=== PATIENT | female | born 1940 | race Caucasian/White ===

== ENCOUNTER 2020-07-19 15:19 | Emergency (ER) | payer MEDICARE, SELFPAY ==
--- NOTE | ~2020-07-19 | XR_ITS ---
XR elbow LT min 3V DATE: 07/19/2020 15:54 INDICATION: Fell backwards and landed on elbow TECHNIQUE: 4 views COMPARISON: None FINDINGS: No fracture or dislocation or joint effusion. No periosteal reaction or bone destruction. IMPRESSION: Negative Reviewed, dictated and finalized at location A. ROOM INTERN IMPRESSION: Negative
[2020-07-19 15:40] VITALS: BP 155/64; PULSE 97; RESP 18; TEMP 36.2; O2SAT 96
--- NOTE | 2020-07-19 15:41 | ED.UPPEXIN ---
HPI - Extremity Injury (Upper) General Chief Complaint: Extremity Injury, Upper Stated Complaint: Left elbow injury Source: patient Mode of arrival: ambulatory Limitations: no limitations History of Present Illness HPI narrative: Matilde Shah is a 80 yo female with a PMH of here for evaluation of left elbow. She was backing of the door with her wet dog and tripped and fell and hit her left elbow there is abrasion and started to bleed and patient drove herself to express care. She came in by wheelchair from car because is recovering from foot fracture. There appears to be no pain in the arm and she is able to have full range of motion both of lower extremity and shoulder Related Data Home Medications Medication Instructions Recorded Confirmed allopurinol 07/19/20 atenolol 07/19/20 atorvastatin 07/19/20 ferrous sulfate mg 07/19/20 furosemide 07/19/20 gabapentin 07/19/20 insulin glargine [Lantus Solostar SUBCUT 07/19/20 U-100 Insulin] nabumetone mg 07/19/20 omeprazole 07/19/20 oxybutynin chloride 07/19/20 sertraline mg 07/19/20 spironolactone 07/19/20 torsemide mg 07/19/20 tramadol mg 07/19/20 Allergies Allergy/AdvReac Type Severity Reaction Status Date / Time Sulfa (Sulfonamide Allergy Rash Verified 07/19/20 16:08 Antibiotics) Review of Systems Review of Systems: Narrative: CONSTITUTIONAL: Denies fever, chills, sweats. EYES: Denies visual changes, redness, discharge. ENT: Denies rhinorrhea, congestion, sore throat, otalgia. CARDIOVASCULAR: Denies chest pain, palpitations, edema. RESPIRATORY: Denies dyspnea, wheezing, cough GASTROINTESTINAL: Denies abdominal pain, nausea, vomiting, diarrhea. GENITOURINARY: Denies dysuria, hematuria, abnormal discharge SKIN: abrasion and small laceration to L elbow- 20 hrs old NEUROLOGIC: Denies numbness, or focal weakness. PSYCHIATRIC: Denies anxiety or depression. Left elbow pain PMFSH Past Medical History Medical History Appendix carcinoma Colon adenoma High cholesterol HTN (hypertension) Family History Family History Other Hypertension Social History Social History (Updated 07/19/20 @ 16:37 by Ariane Chapin CNP) Smoking status: Never smoker Alcohol intake: current Comments At time of signature, I agree with nursing past medical, surgical, social and family history. There is no relevant family history pertinent to the presenting complaint. Exam Narrative: Exam Narrative: GENERAL: This is a well-nourished, well-developed patient, in mild distress. HEAD: normocephalic, atraumatic. EYES: Sclera clear/white. Vision is grossly intact. EARS: External ears normal, auditory canals clear and without drainage, TMs normal without perforation. Hearing grossly intact. NOSE: External nose normal without nasal discharge, nares without redness, no rhinorrhea. THROAT: Mucous membranes moist, NECK: Neck supple, r CARDIOVASCULAR: Regular rate and rhythm without murmurs, gallops, or rubs. RESPIRATORY: Clear to auscultation. Breath sounds equal bilaterally. No wheezes, rales, or rhonchi. GASTROINTESTINAL: Abdomen soft, SKIN: warm, intact - L elbow abrasion, small 2cm laceration NEURO: awake, alert, and oriented to person, place and time. There were no obvious focal neurologic abnormalities. Steady gait EXTREMITIES: Normal range of motion. BACK: Nontender without deformity Course Course Emergency Course: Patient fell while backing in the door with wet dog and hit left elbow X-ray done of left elbow-results:neg for fracture Vital Signs Vital signs: Vital Signs Temperature 97.2 F L 07/19/20 15:40 Pulse Rate 97 07/19/20 15:40 Respiratory Rate 18 07/19/20 15:40 Blood Pressure 155/64 H 07/19/20 15:40 Pulse Oximetry 96 07/19/20 15:40 Temperature 97.2 F L 07/19/20 15:40 Pulse Rate 97 07/19/20 15
== END 2020-07-19 16:46 | disposition home or self-care (01) ==
PROVIDERS: Emergency Provider Nurse Practitioner; PCP Internal Medicine
DX: S51.012A Laceration without foreign body of left elbow, initial encounter (principal); W01.0XXA Fall on same level from slipping, tripping and stumbling without subsequent striking against object, initial encounter; E78.00 Pure hypercholesterolemia, unspecified; I10 Essential (primary) hypertension
CPT/HCPCS: 12001; 73080; 99213; G0463

== ENCOUNTER 2023-11-04 18:20 | Emergency (ER) | payer MEDICARE, SELFPAY ==
--- NOTE | ~2023-11-04 | XR_ITS ---
EXAMINATION: XR chest 1V portable Exam Date/Time: 11/04/2023 20:40 CDT HISTORY: AMS, ER DR APPROVED BRA ARTIFACT DUE TO FX SHOULDER Comparison: 03/01/2011. RESULT: Lines, tubes, and devices: Implanted right chest port tip terminating in the distal SVC. Lungs and pleura: Leftward rotation. Subsegmental left basilar airspace disease. Left costophrenic a ngle blunting. Cardiomediastinal silhouette: Stable. Other: No acute osseous or upper abdominal finding. IMPRESSION: Subsegmental left basilar atelectasis/consolidation. Possible small pleural effusion versus artifact from rotation and prominent pericardial fat pad. Reviewed, dictated and finalized at location K. IMPRESSION: Subsegmental left basilar atelectasis/consolidation. Possible small pleural eff usion versus artifact from rotation and prominent pericardial fat pad.
--- NOTE | ~2023-11-04 | CT_ITS ---
EXAMINATION: CT abdomen pelvis wo con DATE: 11/04/2023 19:52 INDICATION: abd pain TECHNIQUE: Computed tomography (CT) of the abdomen and pelvis was performed without intravenous contr ast. Automated exposure control and iterative reconstruction technique were employed. The dose-length product was 1139.12 mGy-cm. COMPARISON: None. FINDINGS: Exam limited by beam hardening from arm down positioning. Lower thorax: Coronary artery calcification. Mitral calcification. Left anterior chest wall and breas t scarring. Liver: Enlarged. Nodular liver border. Simple left lobe cyst. Biliary/Gallbladder: Dependent sludge/stones, no inflammatory change. No bile duct dilation. Pancreas: Moderate atrophy. Spleen: Markedly enlarged. Adrenals:No mass. Kidneys: No suspicious mass, obstructing stone, or hydronephrosis. GI tract: Uncomplicated appearing anastomoses in the right colon. No small or large bowel dilation. A ppendix not visualized, likely surgically absent. Diverticulosis without diverticulitis. Mesentery/Peritoneum: No ascites, mass, or free air. Retroperitoneum: No mass. Atherosclerotic abdominal aortic and/or arterial calcifications. Pelvis: Partially distended urinary bladder with wall thickening and surrounding stranding. Absent ut erus. Bilateral ovaries not confidently visualized. Soft Tissues: Significant anterior, wall diastases. Soft tissues and body wall otherwise unremarkable . Bones: No acute osseous finding. IMPRESSION: Hepatosplenomegaly and cirrhosis. Reviewed, dictated and finalized at location K.
--- NOTE | ~2023-11-04 | CT_ITS ---
EXAMINATION: CT brain wo con DATE: 11/04/2023 19:52 INDICATION: AMS . TECHNIQUE: Computed tomography (CT) of the head was performed without intravenous contrast. The mA wa s adjusted according to patient size. Iterative reconstruction technique was employed. The dose-lengt h product was 605.33 mGy-cm. COMPARISON: None. FINDINGS: No acute intracranial hemorrhage or extra-axial fluid collection. No hydrocephalus, mass, or herniation. No acute ischemic infarct. Unremarkable dural venous sinus attenuation. No acute osseous abnormality. Minimal bilateral mastoid fluid, the remaining aerated spaces are clear. Mild atrophy and chronic white matter change. Atherosclerotic intracranial calcification. Bilateral l ens replacements. IMPRESSION: No acute intracranial process. Reviewed, dictated and finalized at location K.
[2023-11-04 18:14] VITALS: BP 124/59; PULSE 83; RESP 21; TEMP 36.6; O2SAT 98
--- NOTE | 2023-11-04 18:28 | ECG_ITS ---
SEE SCANNED COPY FOR CONFIRMED REPORT MTDD
--- NOTE | 2023-11-04 18:30 | ED.AMS ---
HPI - Altered Mental Status General Chief Complaint: Altered Mental Status <Herminia Nelson MD - Last Filed: 11/06/23 10:41> Stated Complaint: AMS, LOW B/P, ABD PAIN <Herminia Nelson MD - Last Filed: 11/06/23 10:41> Time Seen by Provider: 11/04/23 18:24 <Herminia Nelson MD - Last Filed: 11/06/23 10:41> History of Present Illness HPI narrative: senior care sent patient to the ER due to concern for altered mental status and low blood pressure, I did speak with the patient and she only tells me that her stomach hurts and cannot say anything else. <Herminia Nelson MD - Last Filed: 11/06/23 10:41> Related Data Home Medications: Home Medications Medication Instructions Recorded Confirmed allopurinol 300 mg tablet 07/19/20 atenolol 50 mg tablet 07/19/20 atorvastatin 20 mg tablet 07/19/20 ferrous sulfate 325 mg (65 mg mg 07/19/20 iron) tablet furosemide 20 mg tablet 07/19/20 gabapentin 600 mg tablet 07/19/20 insulin glargine 100 unit/mL (3 subcut 07/19/20 mL) subcutaneous pen (Lantus Solostar U-100 Insulin) nabumetone 750 mg tablet mg 07/19/20 omeprazole 40 mg capsule,delayed 07/19/20 release oxybutynin chloride 5 mg tablet 07/19/20 sertraline 25 mg tablet mg 07/19/20 spironolactone 50 mg tablet 07/19/20 torsemide 20 mg tablet mg 07/19/20 <Herminia Nelson MD - Last Filed: 11/06/23 10:41> Allergies/Adverse Reactions: Allergies Allergy/AdvReac Type Severity Reaction Status Date / Time furosemide Allergy Unknown Verified 11/04/23 19:21 glucosamine Allergy Unknown Verified 11/04/23 19:21 Iodinated Contrast Media Allergy Swelling Verified 11/04/23 19:21 iodine Allergy Swelling Verified 11/04/23 19:21 nitrofurantoin Allergy Unknown Verified 11/04/23 19:21 shellfish derived Allergy Unknown Verified 11/04/23 19:21 strawberry Allergy Unknown Verified 11/04/23 19:21 Sulfa (Sulfonamide Allergy Rash Verified 05/18/24 18:47 Antibiotics) tositumomab iodine-131 Allergy Swelling Verified 11/04/23 19:21 <Herminia Nelson MD - Last Filed: 11/06/23 10:41> Review of Systems Review of Systems: All systems reviewed & are unremarkable except as noted in HPI and below <Herminia Nleson MD - Last Filed: 11/06/23 10:41> PMFSH Past Medical History Medical History: Medical History Appendix carcinoma Chronic pain Colon adenoma High cholesterol HTN (hypertension) <Herminia Nelson MD - Last Filed: 11/06/23 10:41> Family History Family History: Family History Other Hypertension <Herminia Nelson MD - Last Filed: 11/06/23 10:41> Social History Social History: Social History Smoking status: Never smoker Alcohol intake: current <Herminia Nelson MD - Last Filed: 11/06/23 10:41> Exam Narrative: EXAMINATION OF ORGAN SYSTEMS/BODY AREAS: Constitutional: Vital signs per nursing GENERAL:[No acute distress, non-toxic appearing.] Eyes closed and very sleepy HEAD: But appears to be old bruising to right side of head EYES: Eyes closed but will open them to verbal stimulus ENT: Hearing grossly intact LUNGS: Nonlabored breathing. HEART: [Regular rate and rhythm] ABD: [Soft], [slightly tender to palpation diffusely abdomen] EXT: Right arm bruised; in sling SKIN: Multiple bruises everywhere NEURO: [Sleepy but oriented x 3. No gross focal sensory or strength deficits.] <Herminia Nelson MD - Last Filed: 11/06/23 10:41> EXAMINATION OF ORGAN SYSTEMS/BODY AREAS Constitutional: Vital signs per nursing. GENERAL:No acute distress, non-toxic appearing. Eyes closed and very sleepy. HEAD: But appears to be old bruising to right side of head. EYES: Eyes closed but will open them to verbal stimulus. ENT: Hearing grossly intact. LUNGS: Nonlabored breathing. HEART: Regular rate and rhythm. ABD: Soft, slig
[2023-11-04 18:35] VITALS: O2SAT 97
[2023-11-04 18:47] VITALS: PULSE 81
[2023-11-04 18:59] LABS: Appearance Urine Clear (Clear); Bilirubin Urine Negative (Negative); Blood Urine Negative (Negative); Color Urine Yellow (Yellow); Glucose Urine UA 2+ mg/dL (Negative); Ketones Urine Negative (Negative); Leukocyte Esterase Ur Negative LEU/UL (Negative); Nitrate Urine Negative (Negative); Protein Urine Negative (Negative); Specific Grav Ur 1.013 (1.001-1.035); Urobilinogen Urine 0.2 mg/dL (<2.0)
[2023-11-04 19:11] LABS: Amphetamine Screen Urine Negative (Negative); Barbiturate Screen Urine Negative (Negative); Benzodiazepines Screen Urine Negative (Negative); Cannabinoid Screen Urine Negative (Negative); Cocaine Screen Urine Negative (Negative); Methadone Screen Urine Negative (Negative); Opiate Screen Urine Negative (Negative); Phencyclidine Screen Urine Negative (Negative)
[2023-11-04 19:30] VITALS: BP 118/76; PULSE 84; RESP 22; O2SAT 96
[2023-11-04 19:45] LABS: Add Urine Microscopic? NO
[2023-11-04] MEDS: ACETAMINOPHEN 500 MG TABLET 1000 MG PO (20:06)
[2023-11-04 21:01] LABS: Basophils Percent Auto 0.2 % (0.2-1.2); Eosinophils Absolute Auto 0.5 K/mm3 (0-0.3); Eosinophils Percent Auto 7.8 % (0-4.4); Hematocrit 26.9 % (37.0-47.0); Hemoglobin 8.2 g/dL (12.0-15.0); Immature Granulocyte Percent A 1.6 % (0-0.5); Lymphocytes Absolute Auto 0.68 K/mm3 (0.9-3.2); Lymphocytes Percent Auto 10.5 % (18.3-44.2); Mean Corpuscular HGB Conc 30.5 g/dl (32-36); Mean Corpuscular Hemoglobin 29.4 pg (26-34); Mean Corpuscular Volume 96.4 fl (80-100); Mean Platelet Volume 11.3 fl (7.4-10.4); Monocytes Absolute Auto 0.3 K/mm3 (0.1-0.6); Neutrophils Absolute Auto 4.8 K/mm3 (1.3-6.7); Neutrophils Percent Auto 74.9 % (45.5-73.1); Platelet Count Result 144 k/mm3 (150-375); Red Blood Count 2.79 M/mm3 (4.2-5.4); Red Cell Distribution Width 17.4 % (11.5-14.5); White Blood Count 6.5 K/mm3 (4.5-10.0)
[2023-11-04 21:11] LABS: Alanine Aminotransferase 20 U/L (6-35); Albumin Level 3.8 g/dL (3.5-5.1); Alkaline Phosphatase 109 U/L (38-126); Anion Gap 9 mmol/L (4-12); Aspartate Amino Transferase 37 U/L (14-36); Bilirubin,Total 1.5 mg/dL (0.2-1.3); Blood Urea Nitrogen 36 mg/dL (7-17); Calcium 8.8 mg/dL (8.4-10.2); Carbon Dioxide 28 mmol/L (22-30); Chloride 101 mmol/L (98-107); Estimated CRCL calculation 23 ml/min; Estimated Glomerular Filt Rate 27; Glucose 144 mg/dL (65-110); Potassium 4.2 mmol/L (3.4-5.0); Sodium 138 mmol/L (137-145)
[2023-11-04 21:21] VITALS: BP 110/72; PULSE 83; RESP 20; O2SAT 96
[2023-11-04 21:22] LABS: Troponin I < 0.012 ng/mL (0.000-0.034)
[2023-11-05 00:35] VITALS: BP 101/44; PULSE 82; RESP 21; O2SAT 100
== END 2023-11-05 01:04 ==
PROVIDERS: Emergency Medicine; Emergency Provider Emergency Medicine; PCP Internal Medicine
DX: J18.9 Pneumonia, unspecified organism (principal); R41.82 Altered mental status, unspecified; E78.5 Hyperlipidemia, unspecified; I10 Essential (primary) hypertension
CPT/HCPCS: 36415; 70450; 71045; 74176; 80053; 80307; 81003; 84484; 85025; 93005; 99284; A9270